=== PATIENT | male | born 1960 | race Caucasian/White ===

== ENCOUNTER 2021-11-18 14:00 | Emergency (ER) | payer SELFPAY ==
[2021-11-18 14:01] VITALS: BP 140/88; PULSE 83; RESP 16; TEMP 36.1; O2SAT 100; BMI 29.1
--- NOTE | 2021-11-18 14:26 | EKG12_ITS ---
Test Reason : SYNCOPE Blood Pressure : / mmHG Vent. Rate : 076 BPM Atrial Rate : 076 BPM P-R Int : 124 ms QRS Dur : 098 ms QT Int : 358 ms P-R-T Axes : 061 052 045 degrees QTc Int : 402 ms Normal sinus rhythm Normal ECG Confirmed by JULIEN LA, KAYCEE ([id number]), fashion editor BRENDAN MAYO ([id number]) on 11/20/2021 9:54:44 AM Referred By: JUAN Confirmed By:KAYCEE VICTORIA MD
--- NOTE | 2021-11-18 14:27 | NURSING ---
NO OLD EKGS
[2021-11-18 15:06] LABS: Absolute Lymphocyte Count 1.25 X10^3/uL (0.83-4.51); Basophil# 0.04 X10^3/uL; Basophil% 0.6 % (0-1); Eosinophil# 0.28 X10^3/uL; Eosinophils% 4.2 % (0-5); Hematocrit 40.8 % (40-54); Hemoglobin 13.5 g/dL (13.0-16.5); Lymphocyte # 1.25 X10^3/ul (0.83-4.51); Lymphocyte % 18.9 % (19-41); Mean Corp Hgb Conc 33.1 g/dL (32-36); Mean Corpuscular Hgb 30.2 pg (27.0-32.0); Mean Corpuscular Volume 91.3 fL (80-94); Mean Platelet Vol. 10.4 fl (6.2-12.0); Monocyte# 1.05 X10^3/uL; Monocyte% 15.9 % (0-10); NRBC Flagged by Analyzer 0 % (0-5); Neutrophil # 3.96 X10^3/uL (2.7-7.7); Neutrophil % 59.9 % (47-70); Platelet Count 258 K/mm3 (150-450); RBC Distribution Width CV 12.3 % (11.6-14.6); RBC Distribution Width SD 40.8 fl (35.1-43.9); Red Blood Count 4.47 M/mm3 (4.6-6.2); White Blood Count 6.6 K/mm3 (4.4-11.0)
[2021-11-18] MEDS: 0.9% Normal Saline 1,000 ML 1000 ML IV (15:08)
[2021-11-18 15:22] LABS: Anion Gap 6 (5-15); BUN 27 mg/dL (7-18); BUN/Creat Ratio 21.6 RATIO (10-20); Calcium,Total 8.7 mg/dL (8.5-10.1); Chloride 97 mmol/L (98-107); Creatinine, Serum 1.25 mg/dL (0.70-1.30); EST Glomerular Filtration Rate 63 mL/min (>60); Est Glom Filt Rate - Afr Amer 76 mL/min (>60); Estimated Creatinine Clearance 69.84 ml/min; Glucose 95 mg/dL (74-106); Potassium 4.1 mmol/L (3.5-5.1); Sodium Level 135 mmol/L (136-145); Troponin-I HS 7 pg/mL (3.0-78.0)
--- NOTE | 2021-11-18 15:40 | RAD_ITS ---
History: chest pain EXAMINATION/TECHNIQUE: XR Chest 2 Views: COMPARISON: None FINDINGS: LINES/DEVICES: None. LUNGS: No consolidation, edema or effusion. No pneumothorax. MEDIASTINUM AND CARDIOVASCULAR STRUCTURES: Cardiac silhouette not enlarged. Central airways and mediastinal contour are unremarkable. BONES AND SOFT TISSUES: Moderate levoscoliosis of the upper thoracic spine. RAD/Chest PA and Lateral IMPRESSION: No radiographic evidence of acute cardiopulmonary disease. Thoracic spine scoliosis. at 1652 Reported and signed by: Suhas Oliva MD Electronically Signed: Suhas Oliva MD at 16:51 EST Tel , Service support ,
[2021-11-18 16:05] VITALS: BP 127/70; PULSE 71; RESP 16; O2SAT 100
--- NOTE | 2021-11-18 16:27 | EX.ED.DYSGE1 ---
HPI History of Present Illness Chief Complaint: Syncope Narrative Narrative: Patient presenting for evaluation secondary to a syncopal episode. Patient reports that he was in the shower today and had a sudden onset of lightheadedness, grabbed onto the shower handle and then woke up on the ground. He states that he simply had preceding lightheadedness denies that there was any sort of preceding palpitations chest pain or shortness of breath. Patient does report that recently has had a cough, occasionally when he coughs he states it will get lightheaded. Has taken a couple of negative home Covid test. Denies any sputum or hemoptysis. No recent travel or surgery. No DVT or PE risk factors. No cardiovascular risk factors. Patient reports that he called his primary care physician who recommended he come to the emergency department. Review of systems otherwise negative. PFSH PFSH Allergy/AdvReac Type Severity Reaction Status Date / Time No Known Allergies Allergy Verified 11/18/21 14:01 Social History Smoking Status: Never smoker ROS ROS ED Constitutional Constitutional ED: Denies chills or fever(s) ENT ENT ED: Denies rhinorrhea Cardiovascular Cardiovascular: Reports other Details: Syncope Respiratory/Chest Respiratory/Chest: Reports cough Gastrointestinal Gastrointestinal: Denies abdominal pain, diarrhea, nausea or vomiting Genitourinary Genitourinary ED: Denies dysuria or hematuria Musculoskeletal Musculoskeletal: Denies back pain Integumentary Denies rash Neurologic Neurologic: Denies paresthesias or weakness Psychiatric Psychiatric: Denies depression Endocrine Endocrinology: Denies fatigue Allergic/Immunologic Allergic/Immunologic ED: Denies urticaria EXAM Physical Exam Const Vital Signs: 11/18/21 14:01 11/18/21 15:00 11/18/21 16:05 Temperature 97 F L Temperature Source Temporal Pulse Rate 83 71 Respiratory Rate 16 16 Respiratory Pattern Normal Blood Pressure 140/88 H 127/70 H Blood Pressure Mean 105 89 Pulse Ox 100 100 Oxygen Delivery Method Room Air Room Air Positive well nourished and well developed General Appearance ED: well developed and NAD HEENT Reports moist mucous membranes Negative for trauma or tenderness Eyes EOMs intact bilaterally Neck no lymphadenopathy, supple and no JVD Chest Wall inspection of chest normal Resp normal respiratory effort and clear to auscultation bilaterally Cardio regular rate, regular rhythm, no murmurs and peripheral pulses 2+ throughout GI normal to inspection, nondistended, normoactive bowel sounds, non-tender and no masses Palpation: soft Back/Spine normal to inspection Extremity normal to inspection General Extremety ED: Negative for tenderness Neuro oriented x3 and no sensory deficits noted Sensorium / Orientation: alert Motor Exam: strength 5/5 throughout Psych mental status grossly normal Skin no rashes or lesions noted MDM MDM MDM Narrative Medical decision making narrative: Patient presented secondary to a syncopal episode. EKG was noted to be unremarkable. Patient is found to be low risk for DVT or PE. CBC chemistry high-sensitivity troponin were obtained and were noted to be negative. Chest x-ray PA and lateral by my personal review shows good aeration the lungs, no signs of infiltrate, normal cardiac silhouette, no evidence of acute cardiopulmonary process. Patient remained stable in the emergency department. Patient is negative per the [place] syncope rule, no indication for further work-up or further imaging. Patient was given reassurance. Patient was discharged in stable condition. Lab Data Labs: Laboratory Results - last 24 hr 11/18/21 11/18/21 14:50 14:50 WBC 6.6 RBC 4.47 L Hgb 13.5 Hct 40.8 MCV 91.3 MCH 30.2 MCHC 33.1 RDW Std Deviation 40.8 RDW Coeff of Moshe 12.3 Plt Count 258 MPV 10.4 Immature Gran % (Auto) 0.500 Neut % (Auto) 59.9 Lymph % (Auto) 18.9 L Crook % (Auto) 15.9 H Eos % (Auto) 4.2 Baso % (Auto) 0.6 Absolute Neuts (auto) 4.0 Absolute Lymphs (auto) 1.25 Nucleated RBC % 0 Sodium 135 L Potassium 4.1 Chloride 97 L Carbon Dioxide 32.0 Anion Gap 6 BUN 27 H Creatinine 1.25 Estim Creat Clear Calc 69.84 Est GFR (MDRD) Af Amer 76 Est GFR (MDRD) Non-Af 63 BUN/Creatinine Ratio 21.6 H Glucose 95 Calcium 8.7 Troponin I High Sens 7 EKG Initial EKG: Attestation: I personally reviewed and interpreted this EKG as follows: (Sinus rhythm at [address] segments normal T waves normal HI and QTC intervals no evidence acute ischemia or arrhythmia) Discharge Plan Triage Chief Complaint: Syncope ED Provider: Seb Nazario Dx/Rx/DC Orders Clinical Impression: Syncope Instructions: ED Dizziness or Syncope ... Primary Care Provider: Tracee Gil NP Referrals: Tracee Gil [employer]SEMBLER, [employer]-C [Primary Care Provider] - 1 Week Disposition Disposition: Home, Self Care
[2021-11-18 17:13] VITALS: BP 116/72; PULSE 75; RESP 16; TEMP 36.1; O2SAT 99
== END 2021-11-18 17:14 | disposition home or self-care (01) ==
PROVIDERS: Emergency Provider Emergency Medicine; PCP Nurse Practitioner Family
DX: R55 Syncope and collapse (principal); R05.9 Cough, unspecified
CPT/HCPCS: 71046; 80048; 84484; 85025; 93005; 96360; 99284; J7030; A4216

== ENCOUNTER → 2023-06-11 | Outpatient (CLI) | payer OTHER, SELFPAY ==
--- NOTE | 2023-06-11 13:55 | EKG12_ITS ---
Test Reason : PRE-OP Blood Pressure : / mmHG Vent. Rate : 074 BPM Atrial Rate : 074 BPM P-R Int : 110 ms QRS Dur : 080 ms QT Int : 358 ms P-R-T Axes : 061 041 047 degrees QTc Int : 397 ms Sinus rhythm with short MI Otherwise normal ECG Confirmed by NICANOR LA, MICHELLE ([id number]), book editor BRENDAN MAYO ([id number]) on 06/12/2023 12:46:20 PM Referred By: Juan José Dc Confirmed By:MICHELLE VICK MD
== END | disposition home or self-care (01) ==
PROVIDERS: PCP Nurse Practitioner Family; Referring Provider Orthopaedic Surgery; Visit Provider Orthopaedic Surgery
DX: Z01.810 Encounter for preprocedural cardiovascular examination (principal)
CPT/HCPCS: 93005